=== PATIENT | female | born 1995 | race African-American/Black ===

== ENCOUNTER 2018-01-28 14:14 | Observation (INO) | payer OTHER ==
[2018-01-28] MEDS: IV RINGERS,LACTATED 1000ML 1,000 ML IV (15:19)
[2018-01-28] MEDS: ONDANSETRON PF 4 MG/2 ML VIAL. IV ×2 (15:27→22:15)
[2018-01-28] MEDS: IV DEXTROSE 5%-LACT RINGERS 1,000 ML IV ×2 (16:25→23:00)
[2018-01-28 18:00] LABS: BILIRUBIN,URINE NEGATIVE (NEG); CLARITY,URINE CLEAR; COLOR,URINE YELLOW; GLUCOSE,URINE NEGATIVE (NEG); NITRITE,URINE NEGATIVE (NEG); PROTEIN,URINE NEGATIVE (NEG-TRACE); UROBILINOGEN,URINE 0.2 mg/dL (0.2 mg/dL)
[2018-01-28 18:07] LABS: BACTERIA,URINE FEW /HPF (0-FEW); SQUAMOUS EPITHELIAL CELL,UR MANY /LPF
[2018-01-28 18:12] LABS: AMPHETAMINE/METHAMPHETAMINE NEG (NEG); BARBITURATES NEG (NEG); BENZODIAZEPINES NEG (NEG); CANNABINOIDS NEG (NEG); COCAINE NEG (NEG); ETHANOL, URINE NEG (NEG); METHADONE NEG (NEG); OPIATES NEG (NEG); PHENCYCLIDINE NEG (NEG)
[2018-01-28] MEDS ORDERED: ACETAMINOPHEN 500 MG TABLET PO (18:45)
[2018-01-28 18:58] LABS: BASO # 0.1 x10^3/uL (0.0-0.2); BASO % 1 % (0-3); EOS % 0 % (0-3); HEMATOCRIT 35.4 % (36.0-47.0); HEMOGLOBIN 12.5 g/dL (12.0-15.5); LYMPH # 1.2 x10^3/uL (1.0-4.8); LYMPH % 10 % (24-48); MEAN CORPUSCULAR HEMOGLOBIN 31 pg (25-35); MEAN CORPUSCULAR HGB CONC 35 g/dL (31-37); MEAN CORPUSCULAR VOLUME 89 fL (79-100); MONO # 0.5 x10^3/uL (0.0-1.1); MONO % 4 % (0-9); NEUT # 9.9 x10^3uL (1.8-7.7); NEUT % 85 % (31-73); PLATELET COUNT 190 x10^3/uL (140-400); RED BLOOD COUNT 3.98 x10^6/uL (3.50-5.40); RED CELL DISTRIBUTION WIDTH 12.8 % (11.5-14.5); WHITE BLOOD COUNT 11.6 x10^3/uL (4.0-11.0)
[2018-01-28 19:01] LABS: ADD MAN DIFF? YES
[2018-01-28 19:18] LABS: ALBUMIN 2.6 g/dL (3.4-5.0); ALBUMIN/GLOBULIN RATIO 0.7 (1.0-1.7); ALK PHOS 53 U/L (46-116); ALT (SGPT) 19 U/L (14-59); ANION GAP 13 (6-14); AST (SGOT) 16 U/L (15-37); BLOOD UREA NITROGEN 6 mg/dL (7-20); BUN/CREATININE RATIO 12 (6-20); CALCIUM 8.2 mg/dL (8.5-10.1); CARBON DIOXIDE 22 mmol/L (21-32); CHLORIDE 106 mmol/L (98-107); CREATININE 0.5 mg/dL (0.6-1.0); GFR 188.5; GLUCOSE 112 mg/dL (70-99); POTASSIUM 3.4 mmol/L (3.5-5.1); SODIUM 141 mmol/L (136-145); TOTAL BILIRUBIN 0.2 mg/dL (0.2-1.0); TOTAL PROTEIN 6.4 g/dL (6.4-8.2)
[2018-01-28] MEDS: CLINDAMYCIN 600MG PREMIX 50 ML IV (19:40)
[2018-01-28 20:05] LABS: % BANDS 1 % (0-9); % LYMPHS 8 % (24-48); % MONOS 5 % (0-10); % SEGS 86 % (35-66)
[2018-01-28 20:06] LABS: PLT ESTIMATE ADEQUATE (ADEQUATE)
[2018-01-29] MEDS: CLINDAMYCIN 600MG PREMIX 50 ML IV ×2 (03:54→12:05)
[2018-01-29] MEDS: ONDANSETRON PF 4 MG/2 ML VIAL. IV ×3 (09:06→16:38)
[2018-01-29] MEDS: IV RINGERS,LACTATED 1000ML 1,000 ML IV (09:07)
== END 2018-01-29 17:45 | disposition home or self-care (01) ==
LOC: 3 SO LND 14:14
DX: O26.892 Other specified pregnancy related conditions, second trimester (principal); R19.7 Diarrhea, unspecified; R11.0 Nausea; Z3A.19 19 weeks gestation of pregnancy
CPT/HCPCS: 36415; 80053; 80307; 81001; 85007; 85025; 87086; 96361; 96374; 96375; 96376; G0378; G0379; J2405; J3490; J7120

== ENCOUNTER 2019-08-06 22:46 | Emergency (ER) | payer SELFPAY ==
[~2019-08-06] VITALS: Ht 167.6 cm; Wt 83.5 kg
[~2019-08-06 22:46] MED LIST: CYCL10TA2 PO
[2019-08-06 23:28] VITALS: BP 146/102
--- NOTE | 2019-08-07 00:07 | PHYS DOC ---
Past Medical History Past Medical History: Other Additional Past Medical Histor: Lupus Past Surgical History: Alcohol Use: Occasionally Drug Use: None Adult General Chief Complaint Chief Complaint: DENTAL PROBLEM HPI HPI Patient is a 23 year old female who presents with dental pain has been ongoing for week. Patient states she has an appointment [facility]. States her pain is moderate at 8 out of 10 in severity. She has no medical history. Review of Systems Review of Systems Constitutional: Denies fever or chills [] Eyes: Denies change in visual acuity, redness, or eye pain [] HENT: Reports dental pain. Respiratory: Denies cough or shortness of breath [] Cardiovascular: No additional information not addressed in HPI [] GI: Denies abdominal pain, nausea, vomiting, bloody stools or diarrhea [] : Denies dysuria or hematuria [] Musculoskeletal: Denies back pain or joint pain [] Integument: Denies rash or skin lesions [] Neurologic: Denies headache, focal weakness or sensory changes [] Endocrine: Denies polyuria or polydipsia [] Complete systems were reviewed and found to be within normal limits, except as documented in this note. Allergies Allergies Allergies Coded Allergies Type Severity Reaction Last Updated Verified Penicillins Allergy Intermediate 11/09/15 Yes Physical Exam Physical Exam Constitutional: Well developed, well nourished, no acute distress, non-toxic appearance. [] HENT: Normocephalic, atraumatic, bilateral external ears normal, oropharynx moist, no oral exudates, nose normal. Tooth # 30 is cracked. Eyes: PERRLA, EOMI, conjunctiva normal, no discharge. [] Neck: Normal range of motion, no tenderness, supple, no stridor. [] Skin: Warm, dry, no erythema, no rash. [] Back: No tenderness, no CVA tenderness. [] Extremities: No tenderness, no cyanosis, no clubbing, ROM intact, no edema. [] Neurologic: Alert and oriented X 3, normal motor function, normal sensory function, no focal deficits noted. [] Psychologic: Affect normal, judgement normal, mood normal. [] Current Patient Data Vital Signs Vital Signs Date Time Temp Pulse Resp B/P (MAP) Pulse Ox O2 Delivery O2 Flow Rate FiO2 08/06/19 23:28 98.8 71 16 146/102 (117) 99 Room Air 98.8 EKG EKG [] Radiology/Procedures Radiology/Procedures [] Course & Med Decision Making Course & Med Decision Making Pertinent Labs and Imaging studies reviewed. (See chart for details) Patient has a cracked tooth. Has an appointment with a dentist tomorrow. Will have follow up with dentist. Alysha Disclaimer Dragon Disclaimer This electronic medical record was generated, in whole or in part, using a voice recognition dictation system. Departure Departure Impression: Primary Impression: Pain, dental Disposition: HOME, SELF-CARE Condition: STABLE Referrals: NO PCP (PCP) Patient Instructions: Dental Pain Additional Instructions: Thank you for visiting [facility]. We appreciate you trusting us with your care. If any additional problems come up don't hesitate to return to visit us. Please follow up with your primary care provider so they can plan additional care if needed and know about the problem that you had. If symptoms worsen come back to the Emergency Department. Any concerning symptoms that start such as chest pain, shortness of air, weakness or numbness on one side of the body, running high fevers or any other concerning symptoms return to the ER. Please follow up with dentist as scheduled tomorrow. JIN DILL APRN Aug 07, 2019 00:07
== END 2019-08-07 00:30 | disposition home or self-care (01) ==
LOC: ER 22:46
DX: K08.89 Other specified disorders of teeth and supporting structures (principal); Z88.0 Allergy status to penicillin
CPT/HCPCS: 99281

== ENCOUNTER 2019-08-12 01:58 | Emergency (ER) | payer SELFPAY ==
[~2019-08-12] VITALS: Ht 167.6 cm; Wt 83.9 kg
[2019-08-12 02:00] VITALS: BP 137/64
--- NOTE | 2019-08-12 02:46 | PHYS DOC ---
Past Medical History Past Medical History: Other Additional Past Medical Histor: Lupus Past Surgical History: Alcohol Use: Occasionally Drug Use: None Adult General Chief Complaint Chief Complaint: SHORTNESS OF BREATH HPI HPI Patient is a 23 year old -[place] female who presents with feeling of airway obstruction awaking her from sleep prior prior to ED arrival. Patient states she woke abruptly from sleep with feeling as though she could not breathe. Patient denies history of asthma, allergies, and angioedema. Patient states she was able to look at the back of her throat and thought it looked smaller than normal. She contacted EMS. No stridor or distress noted on EMS arrival. O2 saturations 100%. No recent illnesses, new medications or food exposures. No other acute symptoms or complaints. [] Review of Systems Review of Systems Review symptoms as per history of present illness. All other systems were reviewed and found to be within normal limits, except as documented in this note. Allergies Allergies Allergies Coded Allergies Type Severity Reaction Last Updated Verified Penicillins Allergy Intermediate 11/09/15 Yes Physical Exam Physical Exam Constitutional: Well developed, well nourished, no acute distress, non-toxic appearance. [] HENT: Normocephalic, atraumatic, bilateral external ears normal, no posterior oropharynx swelling, no oral exudates, nose normal. [] Eyes: PERRLA, EOMI, conjunctiva normal, no discharge. [] Neck: Normal range of motion, no tenderness, supple, no stridor. [] Cardiovascular:Heart rate regular rhythm, no murmur [] Lungs & Thorax: Bilateral breath sounds clear to auscultation [] Abdomen: Bowel sounds normal, soft, no tenderness. [] Skin: Warm, dry. [] Back: No tenderness. [] Extremities: No tenderness, no edema. [] Neurologic: Alert and oriented X 3, normal motor function, normal sensory function, no focal deficits noted. [] Psychologic: Affect normal, judgement normal, mood normal. [] Current Patient Data Vital Signs Vital Signs Date Time Temp Pulse Resp B/P (MAP) Pulse Ox O2 Delivery O2 Flow Rate FiO2 08/12/19 02:00 98.3 85 20 137/64 (88) 99 Room Air 98.3 EKG EKG [] Radiology/Procedures Radiology/Procedures [] Course & Med Decision Making Course & Med Decision Making Pertinent Labs and Imaging studies reviewed. (See chart for details) [Patient monitored in the ED. Normal physical exam and vital signs. Patient reassured. Recommendations are watchful waiting and PCP follow-up as needed. Return precautions reviewed.] Alysha Disclaimer Alysha Disclaimer This electronic medical record was generated, in whole or in part, using a voice recognition dictation system. Departure Departure Impression: Primary Impression: Encounter for medical screening examination Disposition: HOME/RESIDENCE PRIOR TO ADM Condition: STABLE Patient Instructions: Medical Screening Exam Additional Instructions: You were elevated emergency department for possible airway swelling. Your physical exam and vital signs are normal. The cause of your symptoms has not been determined. Please go home and rest and follow-up with your PCP as needed. Return to the ED if new or worsening symptoms DESIREE SINGH DO Aug 12, 2019 02:46
== END 2019-08-12 02:27 | disposition home or self-care (01) ==
LOC: ER 01:58
DX: J98.8 Other specified respiratory disorders (principal); Z98.890 Other specified postprocedural states; Z88.0 Allergy status to penicillin
CPT/HCPCS: 99283

== ENCOUNTER → 2020-06-02 | Outpatient (CLI) | payer OTHER ==
--- NOTE | 2020-06-02 16:42 | RAD ---
EXAM: Ultrasound OB Greater than 14 weeks INDICATION: Reason: EFW/ANATOMY SCAN, SIZE OF FETUS INCONSISTENT WITH DATES / Spl. Instructions: / History: TECHNIQUE: Real-time obstetrical ultrasound was performed with permanent freeze-frame documentation. COMPARISON: None. FINDINGS: POSITION: Breech HEART RATE: 1 47 bpm FELIBERTO: 10.9 cm PLACENTA: Anterior CERVICAL LENGTH: 4.3 cm MATERNAL UTERUS: Unremarkable. MATERNAL ADNEXA: Unremarkable. AGE/DATES: Gestational Age by LMP: 20 weeks 3 days Gestation Age by US: 20 weeks 3 days EDC by LMP: October 17, 2020 EDC by US: October 17, 2020 WEIGHT: 353 grams +/- 52 grams PERCENTILE WEIGHT: Not estimated BIOMETRIC PARAMETERS: BPD: 4.8 cm corresponding with 20 weeks 3 days HC: 17.9 cm corresponding with 20 weeks 3 days AC: 15.3 cm corresponding with 20 weeks 3 days FL: 3.3 cm corresponding with 20 weeks 3 days ANATOMY: CARDIAC: Normal four chamber heart. Normal right and left ventricular outflow tracts. UMBILICAL CORD: Normal 3 vessel cord. Normal cord insertion. BRAIN: Unremarkable. NOSE/LIPS: Unremarkable. SPINE: Unremarkable. EXTREMITIES: Unremarkable. STOMACH: Unremarkable. KIDNEYS: Unremarkable. BLADDER: Unremarkable. IMPRESSION: Normal OB ultrasound demonstrating a single viable fetus in breech position. Estimated gestational age of 20 weeks 3 days and EDC of October 17, 2020. Estimated weight is 353 +/- 52 g. Electronically signed by: Crescencio Bae MD (06/02/2020 4:39 PM) [id number]
== END | disposition home or self-care (01) ==
LOC: US 10:29
PROVIDERS: ATTEND Obstetrics & Gynecology
DX: Z32.01 Encounter for pregnancy test, result positive (principal); O34.219 Maternal care for unspecified type scar from previous cesarean delivery; O26.842 Uterine size-date discrepancy, second trimester; Z3A.20 20 weeks gestation of pregnancy
CPT/HCPCS: 76805

== ENCOUNTER → 2020-10-07 | Outpatient (CLI) | payer OTHER | LOC: LAB 16:01 | PROVIDERS: ATTEND Obstetrics & Gynecology | DX: Z20.822 Contact with and (suspected) exposure to COVID-19 (principal) | CPT/HCPCS: U0003 ==

== ENCOUNTER 2020-10-12 08:00 | Inpatient (IN) | payer OTHER ==
[~2020-10-12] VITALS: Ht 167.6 cm; Wt 108.0 kg
[2020-10-12] MEDS: IV RINGERS,LACTATED 1000ML 1,000 ML IV SCH ×2 (06:00→21:36)
[2020-10-12] MEDS ORDERED: MORPHINE PF 10 MG/10 ML AMPUL. ONE (10:40)
[2020-10-12] MEDS ORDERED: OXYTOCIN 10 UNIT/ML VIAL. ONE ×6 (10:40→13:18)
[2020-10-12] MEDS ORDERED: ONDANSETRON PF 4 MG/2 ML VIAL. ONE (10:40)
[2020-10-12] MEDS ORDERED: fentaNYL PF VIAL 100 MCG/2 ML VIAL ONE (10:41)
[2020-10-12] MEDS ORDERED: IBUPROFEN 400 MG TABLET. PO PRN (10:45)
[2020-10-12] MEDS ORDERED: LIDOCAINE 1% PF 30 ML VIAL. INJ PRN (10:45)
[2020-10-12] MEDS ORDERED: 0.9 % SODIUM CHLORIDE 10 ML DISP.SYRIN. IV PRN ×2 (10:45→13:30)
[2020-10-12] MEDS ORDERED: CITRIC ACID/SODIUM CITRATE 30 ML SOLUTION. PO ONE (10:45)
[2020-10-12] MEDS ORDERED: TERBUTALINE 1 MG/ML VIAL. SQ PRN (10:45)
[2020-10-12] MEDS ORDERED: OXYTOCIN 30 UNIT/500 ML PREMIX 500 ML IV PRN ×3 (10:45→13:30)
[2020-10-12] MEDS ORDERED: CLINDAMYCIN 900MG PREMIX 50 ML IV ONE (10:45)
[2020-10-12 11:14] LABS: BASO % 1 % (0-3); EOS # 0.1 x10^3/uL (0.0-0.7); EOS % 1 % (0-3); HEMATOCRIT 35.2 % (36.0-47.0); HEMOGLOBIN 11.8 g/dL (12.0-15.5); LYMPH # 1.9 x10^3/uL (1.0-4.8); LYMPH % 24 % (24-48); MEAN CORPUSCULAR HEMOGLOBIN 28 pg (25-35); MEAN CORPUSCULAR HGB CONC 34 g/dL (31-37); MEAN CORPUSCULAR VOLUME 83 fL (79-100); MONO # 0.6 x10^3/uL (0.0-1.1); MONO % 7 % (0-9); NEUT # 5.3 x10^3/uL (1.8-7.7); NEUT % 67 % (31-73); PLATELET COUNT 173 x10^3/uL (140-400); RED BLOOD COUNT 4.23 x10^6/uL (3.50-5.40); RED CELL DISTRIBUTION WIDTH 14.5 % (11.5-14.5); WHITE BLOOD COUNT 7.9 x10^3/uL (4.0-11.0)
[2020-10-12 11:19] VITALS: BP 129/88
--- NOTE | 2020-10-12 11:55 | PDOC1 ---
OB - History Hx of Present Care: Good Care Ultrasounds: Normal mid trimester US Obstetrical Complications: None Medical Complications: None Past Family/Social History * Past Medical, Surgical, Family and Obstetric Histories reviewed from chart. Rubella: Immune RPR/VDRL: Positive (Treated in 2nd trimester. Will need repeat testing.) GBS Status: Positive HBsAG: Negative OB - Chief Complaint & HPI Date of Admission: Date of Admission: Oct 12, 2020 at 10:27 Chief Complaint/History : 3 Para: 2 EGA: 39 Reason for admission: section Indication for : desires repeat Admission Nurse Assessment Rev: Yes OB - Admission Exam Physical Exam Vitals: VS - Last 72 Hours, by Label Date Time Temp Pulse Resp B/P (MAP) Pulse Ox O2 Delivery O2 Flow Rate FiO2 10/12/20 11:19 98.5 95 18 129/88 (102) 98 Room Air 98.5 HEENT: Normal Heart: Regular Rate Lungs: Clear Abdomen: Gravid, Non tender, Soft Extremities: Edema Reflexes: Normal Cervical Dilatation: None Effacement: 0% Station: Ballotable Membranes: Intact Heart Rate: Normal Accelerations: Accelerations Present Decelerations: No decelerations Contractions on Admission: >10 Minutes Apart Intensity: Mild Text A: 39 wks IUP Previous c/s x 2 H/o Syphilis this and treated P: Admit repeat c/s. DYANA RAMÍREZ Jr, MD Oct 12, 2020 11:55
[2020-10-12] MEDS ORDERED: PROPOFOL 10 MG/ML (20ML) VIAL. IV ONE (12:25)
[2020-10-12] MEDS ORDERED: diphenhydrAMINE ORAL ELIXIR 12.5 MG/5 ML ML PO PRN (13:30)
[2020-10-12] MEDS ORDERED: ONDANSETRON PF 4 MG/2 ML VIAL. IV PRN (13:30)
[2020-10-12] MEDS ORDERED: MAG HYDROX/ALUMINUM HYD/SIMETH 30 ML ORAL.SUSP PO PRN (13:30)
[2020-10-12] MEDS ORDERED: ZOLPIDEM 5 MG TABLET. PO PRN (13:30)
--- NOTE | 2020-10-12 13:30 | PDOC4 ---
OB Operative Note Date: Oct 12, 2020 PRE OP DIAGNOSIS: Previoujs C- section POST OP DIAGNOSIS: Previous C- section OPERATION PERFORMED: R [facility] Surgeon Dr. Mistry Box Coverer Hand Lens Gauger: Yo Anesthesia: Regional (Spinal) Blood Loss 800 ml Specimen placenta and OB Findings: Position (Vertex), Sex (Male), (8/9), Weight (7 Lb 9 oz), Vacuum Extraction (Yes) Complications none Additional Remarks see dictation DYANA MISTRY Jr, MD Oct 12, 2020 13:30
--- NOTE | 2020-10-12 13:54 | OP ---
DATE OF SURGERY: PREOPERATIVE DIAGNOSES: 1. A 39 weeks intrauterine . 2. Previous section x 2. 3. Group B Streptococcus positive. 4. History of syphilis early in . POSTOPERATIVE DIAGNOSES: 1. A 39 weeks intrauterine . 2. Previous section x 2. 3. Group B Streptococcus positive. 4. History of syphilis early in . 5. Uterine dehiscence. PROCEDURE: Repeat low transverse section. SURGEON: Dyana Mistry MD. BOILER INSTALLER: Yo. ANESTHESIA: Spinal. ESTIMATED BLOOD LOSS: 800 mL. COMPLICATIONS: None. FINDINGS: Viable male infant, Apgars 8 and 9, weight 7 pounds 9 ounces. Three-vessel cord placenta delivered manually intact. SUMMARY: A 25-year-old 3, para 2 at 39 weeks, presented for repeat . She was counseled on risks, benefits and expectations and voiced clear understanding to proceed. DESCRIPTION OF PROCEDURE: The patient was taken to surgery suite and placed in dorsal supine position. She was prepped with ChloraPrep and draped in sterile fashion. After adequate anesthesia, Pfannenstiel skin incision was made with scalpel down to and through the fascia. Fascia was extended laterally using curved Kirkpatrick scissors. The superior edge of fascia was dissected free of the abdominal rectus muscles using blunt dissection and Bovie cautery. The same process took place inferiorly. During the dissection of the abdominal rectus muscles with curved Kirkpatrick scissors, it was found that there was a uterine dehiscence which was about the size of about 6 cm and the amniotic sac was present. There were multiple adhesions to the anterior abdominal wall as well as the lower uterine segment. Hysterotomy incision was extended laterally and superiorly digitally. Amniotomy was performed with Allis clamp, which elicited clear amniotic fluid. With the aid of vacuum and fundal pressure, the head was delivered in a smooth atraumatic manner. Vacuum was then removed. With additional fundal pressure, the anterior shoulder was delivered followed by posterior shoulder and rest of male infant was delivered. Infant was suctioned with bulb syringe orally and nasally, umbilical cord was clamped twice and cut. Infant was handed to waiting nursing staff. Umbilical cord blood as well as arterial pH were obtained. Three-vessel cord placenta was delivered manually intact. There were multiple adhesions that were removed in order to remove the uterus from the abdomen. The uterus was then cleared of clot and debris with moist lap. Hysterotomy incision was repaired initially with #1 Vicryl suture in running locked fashion. Two layers of imbricated sutures of running #1 Vicryl suture was utilized for better hemostasis and repair of the hysterotomy incision. The uterus palpated firm. Fallopian tubes and ovaries appeared normal bilaterally. Additional adhesions of the omentum and the abdominal rectus muscles were removed using Bovie cautery and Metzenbaum scissors. The posterior cul-de-sac was cleared of clot with a moist lap. The uterus was then returned to the abdomen. Pericolic gutters were cleared of clot with the moist lap. Hysterotomy incision was reviewed and was hemostatic. Izabella was placed over the hysterotomy incision site. The peritoneum was reapproximated with #1 Vicryl suture in running fashion. The muscles were reapproximated using #1 Vicryl suture in an interrupted fashion. Fascia was reapproximated using Stratafix in running fashion. Skin was reapproximated using 4-0 Vicryl suture in subcuticular manner. The patient tolerated the procedure well and was taken to recovery room in stable condition. Sponge and needle count correct x 3. DYANA MISTRY MD DR: RALPH/mia JOB#: [id number] / [id number]
[2020-10-12] MEDS: KETOROLAC 30 MG/ML VIAL. IV PRN ×2 (15:10→21:36)
[2020-10-12 16:55] VITALS: BP 112/53
[2020-10-12] MEDS: FERROUS SULFATE 325 MG TABLET. PO SCH (17:00)
[2020-10-12 17:25] VITALS: BP 111/57
[2020-10-12 18:00] VITALS: BP 112/49
[2020-10-12 19:00] VITALS: BP 122/55
[2020-10-13 00:14] VITALS: BP 113/52
[2020-10-13 04:32] VITALS: BP 100/48
[2020-10-13] MEDS: IV RINGERS,LACTATED 1000ML 1,000 ML IV SCH (05:30)
[2020-10-13 07:00] LABS: BASO % 0 % (0-3); EOS # 0.1 x10^3/uL (0.0-0.7); EOS % 1 % (0-3); HEMATOCRIT 30.9 % (36.0-47.0); HEMOGLOBIN 10.2 g/dL (12.0-15.5); LYMPH # 1.5 x10^3/uL (1.0-4.8); LYMPH % 19 % (24-48); MEAN CORPUSCULAR HEMOGLOBIN 28 pg (25-35); MEAN CORPUSCULAR HGB CONC 33 g/dL (31-37); MEAN CORPUSCULAR VOLUME 84 fL (79-100); MONO # 0.6 x10^3/uL (0.0-1.1); MONO % 7 % (0-9); NEUT # 5.5 x10^3/uL (1.8-7.7); NEUT % 72 % (31-73); PLATELET COUNT 143 x10^3/uL (140-400); RED BLOOD COUNT 3.68 x10^6/uL (3.50-5.40); RED CELL DISTRIBUTION WIDTH 14.6 % (11.5-14.5); WHITE BLOOD COUNT 7.6 x10^3/uL (4.0-11.0)
[2020-10-13] MEDS: IBUPROFEN 400 MG TABLET. PO PRN ×2 (07:24→17:23)
[2020-10-13] MEDS: FERROUS SULFATE 325 MG TABLET. PO SCH (07:24)
[2020-10-13] MEDS: DOCUSATE SODIUM 100 MG CAPSULE. PO PRN (07:24)
[2020-10-13] MEDS: oxyCODONE/APAP 5/325 1 TAB TABLET PO PRN ×4 (07:25→22:32)
[2020-10-13 11:10] VITALS: BP 108/52
[2020-10-13 13:00] VITALS: BP 95/56
--- NOTE | 2020-10-13 13:10 | PDOC ---
OB Progress Note Date of Service 10/13/20 Time of Evaluation 1305 Notes Pt. feeling well. No complaints. Lab Laboratory Tests Test 10/12/20 11:00 10/13/20 05:27 White Blood Count 7.9 x10^3/uL (4.0-11.0) 7.6 x10^3/uL (4.0-11.0) Red Blood Count 4.23 x10^6/uL (3.50-5.40) 3.68 x10^6/uL (3.50-5.40) Hemoglobin 11.8 g/dL (12.0-15.5) 10.2 g/dL (12.0-15.5) Hematocrit 35.2 % (36.0-47.0) 30.9 % (36.0-47.0) Mean Corpuscular Volume 83 fL (79-100) 84 fL (79-100) Mean Corpuscular Hemoglobin 28 pg (25-35) 28 pg (25-35) Mean Corpuscular Hemoglobin Concent 34 g/dL (31-37) 33 g/dL (31-37) Red Cell Distribution Width 14.5 % (11.5-14.5) 14.6 % (11.5-14.5) Platelet Count 173 x10^3/uL (140-400) 143 x10^3/uL (140-400) Neutrophils (%) (Auto) 67 % (31-73) 72 % (31-73) Lymphocytes (%) (Auto) 24 % (24-48) 19 % (24-48) Monocytes (%) (Auto) 7 % (0-9) 7 % (0-9) Eosinophils (%) (Auto) 1 % (0-3) 1 % (0-3) Basophils (%) (Auto) 1 % (0-3) 0 % (0-3) Neutrophils # (Auto) 5.3 x10^3/uL (1.8-7.7) 5.5 x10^3/uL (1.8-7.7) Lymphocytes # (Auto) 1.9 x10^3/uL (1.0-4.8) 1.5 x10^3/uL (1.0-4.8) Monocytes # (Auto) 0.6 x10^3/uL (0.0-1.1) 0.6 x10^3/uL (0.0-1.1) Eosinophils # (Auto) 0.1 x10^3/uL (0.0-0.7) 0.1 x10^3/uL (0.0-0.7) Basophils # (Auto) 0.0 x10^3/uL (0.0-0.2) 0.0 x10^3/uL (0.0-0.2) Rapid Plasma Reagin Non reactive (Non Reactive) Treponema pallidum Antibody Reactive (Nonreactive) Laboratory Tests Test 10/13/20 05:27 White Blood Count 7.6 x10^3/uL (4.0-11.0) Red Blood Count 3.68 x10^6/uL (3.50-5.40) Hemoglobin 10.2 g/dL (12.0-15.5) Hematocrit 30.9 % (36.0-47.0) Mean Corpuscular Volume 84 fL (79-100) Mean Corpuscular Hemoglobin 28 pg (25-35) Mean Corpuscular Hemoglobin Concent 33 g/dL (31-37) Red Cell Distribution Width 14.6 % (11.5-14.5) Platelet Count 143 x10^3/uL (140-400) Neutrophils (%) (Auto) 72 % (31-73) Lymphocytes (%) (Auto) 19 % (24-48) Monocytes (%) (Auto) 7 % (0-9) Eosinophils (%) (Auto) 1 % (0-3) Basophils (%) (Auto) 0 % (0-3) Neutrophils # (Auto) 5.5 x10^3/uL (1.8-7.7) Lymphocytes # (Auto) 1.5 x10^3/uL (1.0-4.8) Monocytes # (Auto) 0.6 x10^3/uL (0.0-1.1) Eosinophils # (Auto) 0.1 x10^3/uL (0.0-0.7) Basophils # (Auto) 0.0 x10^3/uL (0.0-0.2) Medications Current Medications Clindamycin Phosphate 50 ml @ 100 mls/hr 1X ONCE IV ; Start 10/12/20 at 10:45; Stop 10/12/20 at 11:14; Status DC Cefazolin Sodium/ Dextrose 50 ml @ 100 mls/hr 1X ONCE IV ; Start 10/12/20 at 10:45; Stop 10/12/20 at 11:14; Status UNV Citric Acid/ Sodium Citrate (Bicitra) 30 ml 1X ONCE PO ; Start 10/12/20 at 10:45; Stop 10/12/20 at 10:47; Status DC Sodium Chloride (Normal Saline Flush) 3 ml QSHIFT PRN IV AFTER MEDS AND BLOOD DRAWS; Start 10/12/20 at 10:45; Stop 10/12/20 at 13:36; Status DC Ringer's Solution 1,000 ml @ 125 mls/hr Q8H IV Last administered on 10/13/20at 05:30; Start 10/12/20 at 10:45 Terbutaline Sulfate (Brethine) 0.25 mg 1X PRN PRN SQ SEE COMMENTS; Start 10/12/20 at 10:45; Stop 10/13/20 at 10:44; Status DC Lidocaine HCl (Xylocaine 1% Pf 30ml Vial) 30 ml 1X PRN PRN INJ SEE COMMENTS; Start 10/12/20 at 10:45; Stop 10/14/20 at 10:44 Oxytocin 500 ml @ 0 mls/hr CONT PRN IV SEE I/O RECORD; Start 10/12/20 at 10:45 Oxytocin 500 ml @ 0 mls/hr CONT PRN PRN IV Post delivery bleeding; Start 10/12/20 at 10:45 Ibuprofen (Motrin) 800 mg PRN Q6HRS PRN PO INFLAMMATION; Start 10/12/20 at 10:45; Stop 10/12/20 at 13:36; Status DC Ondansetron HCl (Zofran) 4 mg STK-MED ONCE .ROUTE ; Start 10/12/20 at 10:40; Stop 10/12/20 at 10:40; Status DC Oxytocin (Pitocin) 10 unit STK-MED ONCE .ROUTE ; Start 10/12/20 at 10:40; Stop 10/12/20 at 10:40; Status DC Oxytocin (Pitocin) 10 unit STK-MED ONCE .ROUTE ; Start 10/12/20 at 10:40; Stop 10/12/20 at 10:40; Status DC Oxytocin (Pitocin) 10 unit STK-MED ONCE .ROUTE ; Start 10/12/20 at 10:40; Stop 10/12/20 at 10:40; Status DC Morphine Sulfate (Morphine Preservative Free) 10 mg STK-MED ONCE .ROUTE ; Start 10/12/20 at 10:40; Stop 10/12/20 at 10:41; Status DC Fentanyl Citrate (Fentanyl 2ml Vial) 100 mcg STK-MED ONCE .ROUTE ; Start 10/12/20 at 10:41; Stop 10/12/20 at 10:41; Status DC Ephedrine Sulfate (Akovaz) 50 mg STK-MED ONCE .ROUTE ; Start 10/12/20 at 11:46; Stop 10/12/20 at 11:46; Status DC Propofol (Diprivan) 200 mg STK-MED ONCE IV ; Start 10/12/20 at 12:25; Stop 10/12/20 at 12:25; Status DC Oxytocin (Pitocin) 10 unit STK-MED ONCE .ROUTE ; Start 10/12/20 at 13:18; Stop 10/12/20 at 13:18; Status DC Oxytocin (Pitocin) 10 unit STK-MED ONCE .ROUTE ; Start 10/12/20 at 13:18; Stop 10/12/20 at 13:18; Status DC Oxytocin (Pitocin) 10 unit STK-MED ONCE .ROUTE ; Start 10/12/20 at 13:18; Stop 10/12/20 at 13:18; Status DC Sodium Chloride (Normal Saline Flush) 3 ml QSHIFT PRN IV AFTER MEDS AND BLOOD DRAWS; Start 10/12/20 at 13:30 Oxytocin 500 ml @ 125 mls/hr CONT PRN IV EXCESSIVE POST- BLEEDING; Start 10/12/20 at 13:30; Stop 10/12/20 at 21:29; Status DC Ibuprofen (Motrin) 800 mg PRN Q8HRS PRN PO INFLAMMATION Last administered on 10/13/20at 07:24; Start 10/12/20 at 13:30 Ondansetron HCl (Zofran) 4 mg PRN Q6HRS PRN IV NAUSEA/VOMITING; Start 10/12/20 at 13:30 Docusate Sodium (Colace) 100 mg PRN BID PRN PO CONSTIPATION Last administered on 10/13/20at 07:24; Start 10/12/20 at 13:30 Al Hydroxide/Mg Hydroxide (Mylanta Plus Xs) 30 ml PRN Q4HRS PRN PO HEARTBURN / GAS; Start 10/12/20 at 13:30 Simethicone (Gas-X) 80 mg PRN AFTMEALHC PRN PO GAS / BLOATING; Start 10/12/20 at 13:30 Diphenhydramine HCl (Benadryl Oral Elixir) 12.5 mg PRN Q6HRS PRN PO ITCHING; Start 10/12/20 at 13:30 Ferrous Sulfate (Feosol) 325 mg BIDWMEALS PO Last administered on 10/13/20at 07:24; Start 10/12/20 at 17:00 Zolpidem Tartrate (Ambien) 5 mg PRN QHS PRN PO INSOMNIA, MAY REPEAT X1; Start 10/12/20 at 13:30 Oxycodone/ Acetaminophen (Percocet 5/325) 2 tab PRN Q4HRS PRN PO MODERATE PAIN, SEVERE PAIN Last administered on 10/13/20at 07:25; Start 10/12/20 at 13:30 Ketorolac Tromethamine (Toradol 30mg Vial) 30 mg PRN Q6HRS PRN IV INFLAMMATION/PAIN Last administered on 10/12/20at 21:36; Start 10/12/20 at 13:30; Stop 10/17/20 at 13:29 Multivitamins (Thera M Plus) 1 tab DAILY PO ; Start 10/13/20 at 09:00 Active Scripts Active Cyclobenzaprine Hcl 10 Mg Tablet 10 Mg PO TID Exam Abd: soft, non tender, fundus firm Incision site: clean, dry and intact Assessment POD#1 s/p repeat c/s Plan of Care: Continue current Tx, Mgmt DYANA RAMÍREZ Jr, MD Oct 13, 2020 13:10
[2020-10-13] MEDS: SIMETHICONE 80 MG TAB.CHEW PO PRN (13:19)
[2020-10-13 17:30] VITALS: BP 105/55
[2020-10-13 21:28] VITALS: BP 89/50
[2020-10-14] MEDS: IBUPROFEN 400 MG TABLET. PO PRN ×3 (00:49→17:40)
[2020-10-14] MEDS: oxyCODONE/APAP 5/325 1 TAB TABLET PO PRN ×3 (05:52→17:42)
[2020-10-14 06:03] VITALS: BP 106/59
[2020-10-14 08:15] VITALS: BP 99/66
[2020-10-14] MEDS: FERROUS SULFATE 325 MG TABLET. PO SCH ×2 (08:59→17:39)
[2020-10-14] MEDS: DOCUSATE SODIUM 100 MG CAPSULE. PO PRN ×2 (08:59→17:39)
[2020-10-14] MEDS: MULTIVITAMIN with MINERAL TABLET. PO SCH (08:59)
[2020-10-14 12:05] VITALS: BP 99/52
[2020-10-14] MEDS: SIMETHICONE 80 MG TAB.CHEW PO PRN (12:58)
--- NOTE | 2020-10-14 13:51 | PDOC ---
OB Progress Note Date of Service 10/14/20 Time of Evaluation 1350 Notes PT. feeling well. Pain controlled. No complaints. Lab Laboratory Tests Test 10/13/20 05:27 White Blood Count 7.6 x10^3/uL (4.0-11.0) Red Blood Count 3.68 x10^6/uL (3.50-5.40) Hemoglobin 10.2 g/dL (12.0-15.5) Hematocrit 30.9 % (36.0-47.0) Mean Corpuscular Volume 84 fL (79-100) Mean Corpuscular Hemoglobin 28 pg (25-35) Mean Corpuscular Hemoglobin Concent 33 g/dL (31-37) Red Cell Distribution Width 14.6 % (11.5-14.5) Platelet Count 143 x10^3/uL (140-400) Neutrophils (%) (Auto) 72 % (31-73) Lymphocytes (%) (Auto) 19 % (24-48) Monocytes (%) (Auto) 7 % (0-9) Eosinophils (%) (Auto) 1 % (0-3) Basophils (%) (Auto) 0 % (0-3) Neutrophils # (Auto) 5.5 x10^3/uL (1.8-7.7) Lymphocytes # (Auto) 1.5 x10^3/uL (1.0-4.8) Monocytes # (Auto) 0.6 x10^3/uL (0.0-1.1) Eosinophils # (Auto) 0.1 x10^3/uL (0.0-0.7) Basophils # (Auto) 0.0 x10^3/uL (0.0-0.2) Medications Current Medications Clindamycin Phosphate 50 ml @ 100 mls/hr 1X ONCE IV ; Start 10/12/20 at 10:45; Stop 10/12/20 at 11:14; Status DC Cefazolin Sodium/ Dextrose 50 ml @ 100 mls/hr 1X ONCE IV ; Start 10/12/20 at 10:45; Stop 10/12/20 at 11:14; Status UNV Citric Acid/ Sodium Citrate (Bicitra) 30 ml 1X ONCE PO ; Start 10/12/20 at 10:45; Stop 10/12/20 at 10:47; Status DC Sodium Chloride (Normal Saline Flush) 3 ml QSHIFT PRN IV AFTER MEDS AND BLOOD DRAWS; Start 10/12/20 at 10:45; Stop 10/12/20 at 13:36; Status DC Ringer's Solution 1,000 ml @ 125 mls/hr Q8H IV Last administered on 10/13/20at 05:30; Start 10/12/20 at 10:45; Stop 10/13/20 at 23:47; Status DC Terbutaline Sulfate (Brethine) 0.25 mg 1X PRN PRN SQ SEE COMMENTS; Start 10/12/20 at 10:45; Stop 10/13/20 at 10:44; Status DC Lidocaine HCl (Xylocaine 1% Pf 30ml Vial) 30 ml 1X PRN PRN INJ SEE COMMENTS; Start 10/12/20 at 10:45; Stop 10/13/20 at 23:47; Status DC Oxytocin 500 ml @ 0 mls/hr CONT PRN IV SEE I/O RECORD; Start 10/12/20 at 10:45; Stop 10/13/20 at 23:47; Status DC Oxytocin 500 ml @ 0 mls/hr CONT PRN PRN IV Post delivery bleeding; Start 10/12/20 at 10:45; Stop 10/13/20 at 23:47; Status DC Ibuprofen (Motrin) 800 mg PRN Q6HRS PRN PO INFLAMMATION; Start 10/12/20 at 10:45; Stop 10/12/20 at 13:36; Status DC Ondansetron HCl (Zofran) 4 mg STK-MED ONCE .ROUTE ; Start 10/12/20 at 10:40; Stop 10/12/20 at 10:40; Status DC Oxytocin (Pitocin) 10 unit STK-MED ONCE .ROUTE ; Start 10/12/20 at 10:40; Stop 10/12/20 at 10:40; Status DC Oxytocin (Pitocin) 10 unit STK-MED ONCE .ROUTE ; Start 10/12/20 at 10:40; Stop 10/12/20 at 10:40; Status DC Oxytocin (Pitocin) 10 unit STK-MED ONCE .ROUTE ; Start 10/12/20 at 10:40; Stop 10/12/20 at 10:40; Status DC Morphine Sulfate (Morphine Preservative Free) 10 mg STK-MED ONCE .ROUTE ; Start 10/12/20 at 10:40; Stop 10/12/20 at 10:41; Status DC Fentanyl Citrate (Fentanyl 2ml Vial) 100 mcg STK-MED ONCE .ROUTE ; Start 10/12 at 10:41; Stop 10/12/20 at 10:41; Status DC Ephedrine Sulfate (Akovaz) 50 mg STK-MED ONCE .ROUTE ; Start 10/12/20 at 11:46; Stop 10/12/20 at 11:46; Status DC Propofol (Diprivan) 200 mg STK-MED ONCE IV ; Start 10/12/20 at 12:25; Stop 10/12/20 at 12:25; Status DC Oxytocin (Pitocin) 10 unit STK-MED ONCE .ROUTE ; Start 10/12/20 at 13:18; Stop 10/12/20 at 13:18; Status DC Oxytocin (Pitocin) 10 unit STK-MED ONCE .ROUTE ; Start 10/12/20 at 13:18; Stop 10/12/20 at 13:18; Status DC Oxytocin (Pitocin) 10 unit STK-MED ONCE .ROUTE ; Start 10/12/20 at 13:18; Stop 10/12/20 at 13:18; Status DC Sodium Chloride (Normal Saline Flush) 3 ml QSHIFT PRN IV AFTER MEDS AND BLOOD DRAWS; Start 10/12/20 at 13:30; Stop 10/13/20 at 23:47; Status DC Oxytocin 500 ml @ 125 mls/hr CONT PRN IV EXCESSIVE POST- BLEEDING; Start 10/12/20 at 13:30; Stop 10/12/20 at 21:29; Status DC Ibuprofen (Motrin) 800 mg PRN Q8HRS PRN PO INFLAMMATION Last administered on 10/14/20at 08:59; Start 10/12/20 at 13:30 Ondansetron HCl (Zofran) 4 mg PRN Q6HRS PRN IV NAUSEA/VOMITING; Start 10/12/20 at 13:30; Stop 10/13/20 at 23:47; Status DC Docusate Sodium (Colace) 100 mg PRN BID PRN PO CONSTIPATION Last administered on 10/14/20at 08:59; Start 10/12/20 at 13:30 Al Hydroxide/Mg Hydroxide (Mylanta Plus Xs) 30 ml PRN Q4HRS PRN PO HEARTBURN / GAS; Start 10/12/20 at 13:30 Simethicone (Gas-X) 80 mg PRN AFTMEALHC PRN PO GAS / BLOATING Last administered on 10/14/20at 12:58; Start 10/12/20 at 13:30 Diphenhydramine HCl (Benadryl Oral Elixir) 12.5 mg PRN Q6HRS PRN PO ITCHING; Start 10/12/20 at 13:30 Ferrous Sulfate (Feosol) 325 mg BIDWMEALS PO Last administered on 10/14/20at 08:59; Start 10/12/20 at 17:00 Zolpidem Tartrate (Ambien) 5 mg PRN QHS PRN PO INSOMNIA, MAY REPEAT X1; Start 10/12/20 at 13:30 Oxycodone/ Acetaminophen (Percocet 5/325) 2 tab PRN Q4HRS PRN PO MODERATE PAIN, SEVERE PAIN Last administered on 10/14/20at 12:57; Start 10/12/20 at 13:30 Ketorolac Tromethamine (Toradol 30mg Vial) 30 mg PRN Q6HRS PRN IV INFLAMMATION/PAIN Last administered on 10/12/20at 21:36; Start 10/12/20 at 13:30; Stop 10/13/20 at 23:47; Status DC Multivitamins (Thera M Plus) 1 tab DAILY PO Last administered on 10/14/20at 08:59; Start 10/13/20 at 09:00 Active Scripts Active Cyclobenzaprine Hcl 10 Mg Tablet 10 Mg PO TID Exam Abd: soft, non tender, fundus firm Incision site: clean, dry and intact Assessment POD#2 s/p repeat c/s Plan of Care: Continue current Tx, Mgmt DYANA RAMÍREZ Jr, MD Oct 14, 2020 13:51
[2020-10-14 16:45] VITALS: BP 108/45
[2020-10-14 21:13] VITALS: BP 120/76
[2020-10-15] MEDS: oxyCODONE/APAP 5/325 1 TAB TABLET PO PRN ×2 (03:59→12:24)
[2020-10-15 04:06] VITALS: BP 107/72
[2020-10-15] MEDS: SIMETHICONE 80 MG TAB.CHEW PO PRN (08:50)
[2020-10-15] MEDS: DOCUSATE SODIUM 100 MG CAPSULE. PO PRN (08:50)
[2020-10-15] MEDS: IBUPROFEN 400 MG TABLET. PO PRN (08:50)
[2020-10-15] MEDS: MULTIVITAMIN with MINERAL TABLET. PO SCH (08:50)
[2020-10-15 10:15] VITALS: BP 118/78
--- NOTE | 2020-10-15 15:43 | PDOC3 ---
OB DISCHARGE SUMMARY DATE OF ADMISSION: 10/12/20 DATE OF DISCHARGE: 10/15/20 REASON FOR ADMISSION: section INTRAPARTUM PROCEDURES: : Low Cerv Trans DISCHARGE DIAGNOSIS: Term Delivered DISCHARGE INFORMATION: Activity (ad marlon), Diet (regular), Instructions (pelvic rest x 6 wks, no driving x 2 wks, no lifting > 20 lbs. ) HOSPITAL COURSE Term gestation delivered repeat section without complications. DYANA RAMÍREZ Jr, MD Oct 15, 2020 15:43
[2020-10-15] MEDS ORDERED: IBUP-1027 PO (15:45)
[2020-10-15] MEDS ORDERED: OXYC1TAB15 PO (15:45)
[2020-10-15] MEDS ORDERED: DOCU-153 PO (15:45)
--- NOTE | 2020-10-15 15:45 | DISCH ---
DISCHARGE INSTRUCTIONS Condition on Discharge Condition on Discharge: Stable Activity After Discharge Activity Instructions for Disc: Activity as tolerated Lifting Instructions after Dis: No heavy lifting Driving Instructions after Dis: No driving for 2 weeks Diet after Discharge Diet after Discharge: Regular Contacting the DRJacob after DC Call your doctor for: Concerns you may have Follow-Up Follow up with: Dr. Mistry in 2 weeks DYANA MISTRY Jr, MD Oct 15, 2020 15:45
--- NOTE | 2020-10-15 15:55 | NUR ---
Discharge instructions given to pt. Pt verbalized understanding. Pt discharged home with significant other and .
[2020-10-15 16:20] VITALS: BP 114/66
--- NOTE | 2020-10-18 18:10 | PATHOLOGY ---
[facility] Accession Number: [id number] . 01 Material submitted: . placenta - PLACENTA AND CORD . 01 Clinical history: . ;UTERINE DEHISCENCE AND ABRUPTION SYPHILIS REACTIVE . 02 Diagnosis: 477 gram term placenta of an estimated 39 weeks 2 days gestation with attached membranes and umbilical cord and separate segment of umbilical cord: - Focal recent retroplacental and retromembranous hemorrhage. - Focal recent subamniotic hemorrhage of chorionic plate. (JPM:dominguez; 10/18/2020) S 10/18/2020 1728 Local . 02 Comment: There is no evidence of an acute chorioamnionitis. There is no evidence of a chronic villitis. More specifically, there is no evidence of syphilitic placentitis. There are no infarcts. (JPM:dominguez; 10/18/2020) . 02 Electronically signed: . Reji Jackson MD, Pathologist NPI- [id number] . 01 Gross description: . Received in formalin labeled "Esteban Plunkett, placenta " is a marques placenta with attached membranes and umbilical cord. The placental disc measures 17.2 x 15.9 x 4.4 cm. The membranes are transparent and thin with the site of membrane rupture at edge of the placental disc. The membranes have marginal insertion. The unattached unoriented umbilical cord measures 19.9 cm in length, 1.2 cm in diameter. The attached umbilical cord measures 13.2 cm in length, 1.4 cm in diameter and contains three vessels and inserts eccentrically, 3.6 cm from the closest placental margin. There are no true knots in the umbilical cord. The trimmed placental weight is 477 grams. The surface is blue-rowan with blood clot adjacent to the umbilical cord beneath the membranes measuring 5.9 x 3.6 x 1.4 cm and with minimal subchorionic fibrin. Amnion nodosum is not present. Cysts are not present. The maternal surface has intact cotyledons and no basal hemorrhage. Sectioning through the placental disc reveals spongy, red-purple cut surface without any chronic or acute infarcts. Fur Cutter sections are submitted as follows: . A1 proximal and distal umbilical cord A2 membranes, rolled A3 credit and collections representative peripheral placenta A4 credit and collections representative central placenta A5 additional maternal surface A6 surface adjacent to umbilical cord insertion site ([facility]; 10/17/2020) GZA/GZA 10/17/2020 0920 Local . 02 Pathologist provided ICD-10: O43.893, Z37.0, Z3A.39 . 02 CPT . 118000 Specimen Comment: A courtesy copy of this report has been sent to [phone] Specimen Comment: Report sent to Specimen Comment: A duplicate report has been generated due to demographic updates. Performed at: 01 [facility] [address], [place] [address] MD Syed Ag MD Phone: [phone] Performed at: 02 [facility] [address], [place] [id number] MD Reji Jackson MD Phone: [phone]
== END 2020-10-15 16:35 | disposition home or self-care (01) | DRG 788 ==
LOC: 3 SO LND 10:27 → 3 NORTH 16:45
PROVIDERS: ADMIT Obstetrics & Gynecology; ATTEND Obstetrics & Gynecology
PROC: 10D00Z1 Extraction of Products of Conception, Low, Open Approach (ICD-10-PCS; principal; 2020-10-12)
PROC: 0UN90ZZ Release Uterus, Open Approach (ICD-10-PCS; 2020-10-12)
PROC: 0DNU0ZZ Release Omentum, Open Approach (ICD-10-PCS; 2020-10-12)
DX: O34.211 Maternal care for low transverse scar from previous cesarean delivery (principal); O99.824 Streptococcus B carrier state complicating childbirth; O90.0 Disruption of cesarean delivery wound; O99.892 Other specified diseases and conditions complicating childbirth; O99.62 Diseases of the digestive system complicating childbirth; K66.0 Peritoneal adhesions (postprocedural) (postinfection); Z3A.39 39 weeks gestation of pregnancy; Z37.0 Single live birth
CPT/HCPCS: 36415; 85025; 86592; 86850; 86900; 86901; 86920; 88307; J1885; J2274; J2405; J2590; J2704; J3010; J7120; G0378

== ENCOUNTER → 2021-01-10 | Outpatient (CLI) | payer OTHER ==
[~2021-01-10] MED LIST changes: +DOCU-153 PO; +IBUP-1027 PO; +OXYC1TAB15 PO
== END ==
LOC: LAB 10:13
PROVIDERS: ATTEND Obstetrics & Gynecology
DX: Z01.812 Encounter for preprocedural laboratory examination (principal); Z20.822 Contact with and (suspected) exposure to COVID-19
CPT/HCPCS: U0003; U0005

== ENCOUNTER 2021-01-13 06:43 | Day surgery (SDC) | payer OTHER ==
[~2021-01-13 06:43] MED LIST changes: +HYDROmorphone 2 MG/ML VIAL IVP PRN; +IV RINGERS,LACTATED 1000ML 1,000 ML IV SCH; +MORPHINE SULFATE 2 MG/ML VIAL. IVP PRN; +PROCHLORPERAZINE 10 MG/2 ML VIAL. IVP PRN; +fentaNYL PF VIAL 100 MCG/2 ML VIAL IVP PRN
[2021-01-13] MEDS ORDERED: BUPIVACAINE-EPI 0.25% 30 ML VIAL KIT. ONE (06:59)
[2021-01-13] MEDS ORDERED: DEXAMETHASONE SOD PHOS 20 MG/5 ML VIAL. ONE (08:00)
[2021-01-13] MEDS ORDERED: ROCURONIUM 50 MG/5 ML VIAL. ONE (08:00)
[2021-01-13] MEDS ORDERED: LIDOCAINE 2% 100 MG/5 ML SYRINGE. ONE (08:00)
[2021-01-13] MEDS ORDERED: NEOSTIGMINE METHYLSULFATE 5 MG/5 ML SYRINGE. ONE (08:00)
[2021-01-13] MEDS ORDERED: ePHEDrine PF IN SALINE 50 MG/10 ML SYRINGE. IV ONE (08:00)
[2021-01-13] MEDS ORDERED: PROPOFOL 10 MG/ML (20ML) VIAL. IV ONE (08:00)
[2021-01-13] MEDS ORDERED: GLYCOPYRROLATE 1 MG/5 ML SYRINGE. ONE (08:00)
[2021-01-13] MEDS ORDERED: MIDAZOLAM HCL/PF 2 MG/2 ML VIAL. ONE (08:14)
[2021-01-13] MEDS ORDERED: ONDANSETRON PF 4 MG/2 ML VIAL. ONE ×2 (08:14→08:15)
[2021-01-13] MEDS ORDERED: KETOROLAC 30 MG/ML VIAL. ONE (08:15)
[2021-01-13] MEDS ORDERED: fentaNYL PF VIAL 250 MCG/5 ML VIAL ONE (08:15)
--- NOTE | 2021-01-13 09:09 | PDOC ---
BRIEF OPERATIVE NOTE Date: Jan 13, 2021 Pre-Op Diagnosis Sterilization Post-Op Diagnosis SAme Procedure Performed [facility] BTL Surgeon Dr. Mistry Anesthesia Type: General Blood Loss 10 ml Specimens Obtained none Findings nml size uterus with adhesions to abd wall, nml fallopian tubes and ovaries mervin. Complications none Operative Note see dictation DYANA MISTRY Jr, MD Jan 13, 2021 09:09
--- NOTE | 2021-01-13 09:10 | DISCH ---
DISCHARGE INSTRUCTIONS Condition on Discharge Condition on Discharge: Stable Activity After Discharge Activity Instructions for Disc: Avoid exertion Bathing Instructions: No Tub Bath until see Lifting Instructions after Dis: No heavy lifting, No pulling or pushing, Do not lift >10 pounds Driving Instructions after Dis: Do not drive today Weight Bearing Status after Di: As tolerated Diet after Discharge Diet after Discharge: Regular Contacting the DRJacob after DC Call your doctor for: Concerns you may have Follow-Up Follow up with: Dr. Connelly in 1 week DYANA CONNELLY Jr, MD Jan 13, 2021 09:10
[2021-01-13] MEDS ORDERED: fentaNYL PF VIAL 100 MCG/2 ML VIAL ONE (09:29)
[2021-01-13] MEDS: fentaNYL PF VIAL 100 MCG/2 ML VIAL IVP PRN ×2 (09:31→09:48)
[2021-01-13] MEDS ORDERED: OXYC1TAB15 PO (09:51)
[2021-01-13] MEDS ORDERED: oxyCODONE/APAP 5/325 1 TAB TABLET PO ONE ×2 (10:00)
[2021-01-13 10:15] VITALS: BP 121/59
--- NOTE | 2021-01-13 13:19 | OP ---
DATE OF SURGERY: 01/13/2021 PREOPERATIVE DIAGNOSIS: Sterilization. POSTOPERATIVE DIAGNOSIS: Sterilization. PROCEDURE: Laparoscopic BTL with Filshie clips. SURGEON: Dr. Mistry. ANESTHESIA: GETA. ESTIMATED BLOOD LOSS: 10 mL. COMPLICATIONS: None. FINDINGS: Normal size uterus with adhesions to the abdominal wall. Normal fallopian tubes and ovaries bilaterally. SUMMARY: A 25-year-old female who desires permanent sterilization and was counseled on the risks, benefits and expectations as well as failure rate and desired to proceed. DESCRIPTION OF PROCEDURE: The patient was taken to surgery suite and placed in dorsal lithotomy position where she was prepped with Betadine solution for vaginal prep and ChloraPrep for abdominal prep. After adequate anesthesia, a bivalve speculum was placed vaginally. The anterior lip of the cervix was grasped with a single tooth tenaculum. Uterine acorn manipulator was then placed. The bivalve speculum was removed. Attention was now placed on the abdomen. A small transverse skin incision was made just below the umbilicus with a scalpel. The Veress needle was then placed through the infraumbilical incision site. The abdomen was allowed to insufflate up to 1.5 liters of CO2 gas. The Veress needle was then removed. A 5 mm trocar was placed. The scope was positioned. The uterus was of normal size with adhesions to the abdominal wall. Fallopian tubes and ovaries appeared normal bilaterally. A second incision was made in the left lower quadrant which an 8 mm trocar was placed. The Filshie clip applicator was then used to place a Filshie clip across the left fallopian tube in the isthmus region, totally occluding the fallopian tube. Same process took place at the right adnexa. The trocar was then removed under direct visualization. The abdomen was allowed to deflate as much as possible along with mechanical manipulation. The two skin incisions were reapproximated using 4-0 Vicryl suture in subcuticular manner. 0.25% Marcaine with epinephrine was injected in each incision site. Uterine acorn manipulator and single tooth tenaculum were then removed. The patient tolerated the procedure well and was taken to recovery room in stable condition. Sponge and needle count correct x 3. RALPH/NEGRA/ANUP DR: RALPH/mia TID: [id number]
== END 2021-01-13 10:48 | disposition home or self-care (01) ==
LOC: SURG 06:43
PROVIDERS: ATTEND Obstetrics & Gynecology
DX: Z30.2 Encounter for sterilization (principal); E66.9 Obesity, unspecified; K21.9 Gastro-esophageal reflux disease without esophagitis; F41.9 Anxiety disorder, unspecified; F17.210 Nicotine dependence, cigarettes, uncomplicated; Z79.899 Other long term (current) drug therapy; Z98.890 Other specified postprocedural states; Z88.0 Allergy status to penicillin; Z72.89 Other problems related to lifestyle
CPT/HCPCS: 58671; 81025; A4930; A6219; J0780; J1100; J1885; J2250; J2405; J2704; J2710; J3010; J3490

== ENCOUNTER 2021-04-29 22:50 | Emergency (ER) | payer OTHER ==
[~2021-04-29] VITALS: Ht 167.6 cm; Wt 95.6 kg
[~2021-04-29 22:50] MED LIST changes: +DOCU-148 PO; -DOCU-153 PO; -HYDROmorphone 2 MG/ML VIAL IVP PRN; -IV RINGERS,LACTATED 1000ML 1,000 ML IV SCH; -MORPHINE SULFATE 2 MG/ML VIAL. IVP PRN; -PROCHLORPERAZINE 10 MG/2 ML VIAL. IVP PRN; -fentaNYL PF VIAL 100 MCG/2 ML VIAL IVP PRN
[2021-04-30 00:31] LABS: BILIRUBIN,URINE NEGATIVE (NEG); CLARITY,URINE CLEAR; COLOR,URINE YELLOW; NITRITE,URINE NEGATIVE (NEG); PROTEIN,URINE NEGATIVE (NEG-TRACE); UROBILINOGEN,URINE 0.2 mg/dL (0.2 mg/dL)
[2021-04-30 01:12] LABS: BACTERIA,URINE MODERATE /HPF (0-FEW); RBC,URINE OCC /HPF (0-2)
[2021-04-30 01:49] VITALS: BP 126/77
[2021-04-30] MEDS ORDERED: NITR100C62 PO (02:42)
--- NOTE | 2021-04-30 02:45 | PHYS DOC ---
Past Medical History Past Medical History: Other Additional Past Medical Histor: Lupus Past Surgical History: Smoking Status: Current Every Day Smoker Alcohol Use: Rarely Drug Use: None General Adult EDM: Chief Complaint: FLANK PAIN HPI: HPI: 25-year-old female with no significant past medical history (smokes cigars) presents to the ED with complaints of burning with urination and mild bloody urine for the past 2 days with sharp, nonradiating intermittent right flank pain. Patient states she has had a urinary tract infection before and this feels similar. Last menstrual period was April 19. States she took 1 dose/2 tablets of Azo and quickly after developed pruritic rash on her right arm. Urticaria with penicillin. Does not take any routine medications. No associated nausea or vomiting or flulike symptoms. Review of Systems: Review of Systems: Constitutional: Denies fever or chills. [] Eyes: Denies change in visual acuity. [] HENT: Denies nasal congestion or sore throat. [] Respiratory: Denies cough or shortness of breath. [] Cardiovascular: Denies chest pain or edema. [] GI: Denies abdominal pain, nausea, vomiting, or diarrhea. [] : Denies vaginal bleeding or saddle anesthesia Musculoskeletal: Denies joint pain or swelling Integument: Denies rash or diaphoresis Neurologic: Denies headache, focal weakness or sensory changes. [] Psychiatric: Denies depression or anxiety. [] Heart Score: C/O Chest Pain: No Risk Factors: Risk Factors: DM, Current or recent (<one month) smoker, HTN, HLP, family history of CAD, obesity. Risk Scores: Score 0 - 3: 2.5% MACE over next 6 weeks - Discharge Home Score 4 - 6: 20.3% MACE over next 6 weeks - Admit for Clinical Observation Score 7 - 10: 72.7% MACE over next 6 weeks - Early Invasive Strategies Allergies: Allergies: Allergies Coded Allergies Type Severity Reaction Last Updated Verified Penicillins Allergy Intermediate Swelling 01/13/21 Yes Physical Exam: PE: Constitutional: Well developed, well nourished, no acute distress, non-toxic appearance. HENT: Normocephalic, atraumatic, oropharynx patent Eyes: EOMI, conjunctiva normal, no discharge. Neck: Normal range of motion, supple, Cardiovascular: S1/2 present, regular rhythm Lungs & Thorax: Speaking in full sentences, bilateral equal chest rise, no tachypnea or increased work of breathing Skin: Warm, dry, no urticaria but with small raised lesions over right forearm - could indicate resolving urticaria Back: No tenderness, right CVA tenderness. [] Extremities: No tenderness, no cyanosis, no lower extremity edema Neurologic: Alert and oriented X 3, normal motor function, normal sensory function, no focal deficits noted. [] Psychologic: Affect normal, judgement normal, mood normal. [] Current Patient Data: Labs: Laboratory Tests Test 04/29/21 22:56 04/29/21 22:59 Urine Collection Type Unknown Urine Color Yellow Urine Clarity Clear Urine pH 7.0 (<5.0-8.0) Urine Specific [place] 1.010 (1.000-1.030) Urine Protein Negative mg/dL (NEG-TRACE) Urine Glucose (UA) Negative mg/dL (NEG) Urine Ketones (Stick) Negative mg/dL (NEG) Urine Blood Moderate (NEG) Urine Nitrite Negative (NEG) Urine Bilirubin Negative (NEG) Urine Urobilinogen Dipstick 0.2 mg/dL (0.2 mg/dL) Urine Leukocyte Esterase Moderate (NEG) Urine RBC Occ /HPF (0-2) Urine WBC 11-20 /HPF (0-4) Urine Squamous Epithelial Cells Mod /LPF Urine Bacteria Moderate /HPF (0-FEW) Urine Mucus Slight /LPF POC Urine HCG, Qualitative Hcg negative (Negative) Vital Signs: Vital Signs Date Time Temp Pulse Resp B/P (MAP) Pulse Ox O2 Delivery O2 Flow Rate FiO2 04/29/21 23:25 98.4 80 16 121/75 (79) 99 Room Air 98.4 EKG: EKG: [] Radiology/Procedures: Radiology/Procedures: [] Course & Med Decision Making: Course & Med Decision Making Pertinent Labs and Imaging studies reviewed. (See chart for details) Concern for uncomplicated UTI in a well-appearing, afebrile patient with no medical signs of pyelonephritis. Will treat with Macrobid and recommend to discontinue any AZO use, antihistamines [id number] as needed for itching. Will discharge home with strict ED return precautions were given for pyelonephritis which includes flulike symptoms, fever, nausea or vomiting or dehydration. Encouraged urgent outpatient follow-up with PMD. Life-threatening processes were considered but are low suspicion at this time, given history, physical exam and ED workup. Pt was educated on all prescription medications and adverse effects. All patient's questions were answered and pt was stable at time of discharge. Life/limb-threatening differential includes but is not limited to, trauma, infection, nephrolithiasis, kidney disease, malignancy, obstructive uropathy, BPH, AAA/AVF/aortic dissection, or schistosomiasis. I have spoken with the patient and/or caregivers. I explained the patient's condition, diagnoses and treatment plan based on the information available to me at this time. I have answered the patient and/or caregiver's questions and addressed any concerns. The patient and/or caregivers have a good understanding of patient's diagnosis, condition and treatment plan as can be expected at this point. Vital signs have been stable. Patient's condition is stable and appropriate for discharge from the emergency department. Patient will pursue further outpatient evaluation with primary care physician or other designated or consulting physician as outlined in the discharge instructions. The patient and/or caregivers are agreeable to this plan of care and follow-up instructions have been explained in detail. The patient and/or caregivers have received these instructions in written form and have expressed an understanding of the discharge instructions. The patient and/or caregivers are aware that any significant change of condition or worsening of symptoms should prompt immediate return to this or the closest emergency department or call to 911Jacob Encarnacion Disclaimer: Alysha Disclaimer: This electronic medical record was generated, in whole or in part, using a voice recognition dictation system. Departure Departure Impression: Primary Impression: UTI (lower urinary tract infection) Disposition: HOME / SELF CARE / HOMELESS Condition: STABLE Referrals: NO PCP (PCP) Follow-up with your primary care physician to repeat u/a in 10 days OR FOLLOW UP WITH FAMILY MEDICINE: [address] [place] [address] Patient Instructions: Urinary Tract Infection Additional Instructions: EMERGENCY DEPARTMENT GENERAL DISCHARGE INSTRUCTIONS Thank you for coming to [facility] Emergency Department (ED) today and trusting us with you care. We trust that you had a positive experience in our Emergency Department. If you wish to speak to the department management, you may call the Director at [phone]. YOUR FOLLOW UP INSTRUCTIONS ARE FOLLOWS: 1. Do you have a private Doctor? If you do not have a private doctor, please ask for a resource list of physicians or clinics that may be able to assist you with follow up care. ADDITIONAL INSTRUCTIONS AND INFORMATION: 1. Your care today has been supervised by a physician who is specially trained in emergency care. Many problems require more than one evaluation for a complete diagnosis and treatment. We recommend that you schedule your follow up appointment as recommended to ensure complete treatment of you illness or injury. If you are unable to obtain follow up care and continue to have a problem, or if your condition worsens, we recommend that you return to the ED. 2. We are not able to safely determine your condition over the phone nor are we able to give sound medical advice over the phone. For these safety reasons, if you call for medical advice we will ask you to come to the ED for further evaluation. 3. If you have any questions regarding these discharge instructions please call the ED at [phone]. SAFETY INFORMATION: In the interest of safety, wellness, and injury prevention; we encourage you to wear your sealbelt, if you smoke; quite smoking, and we encourage family to use a protective helmet for bicycling and other sporting events that present an increased risk for head injury. IF YOUR SYMPTOMS WORSEN OR NEW SYMPTOMS DEVELOP, OR YOU HAVE CONCERNS ABOUT YOUR CONDITION; OR IF YOUR CONDITION WORSENS WHILE YOU ARE WAITING FOR YOUR FOLLOW UP APPOINTMENT; EITHER CONTACT YOUR PRIMARY CARE DOCTOR, THE PHYSICIAN WHOSE NAME AND NUMBER YOU WERE GIVEN, OR RETURN TO THE ED IMMEDIATELY. Scripts Nitrofurantoin Monohyd/M-Cryst (MACROBID 100 MG CAPSULE) 100 Mg Capsule 1 CAP PO BID for 7 Days, #14 CAP 0 Refills Prov: JONATAN HEMPHILL DO 04/30/21 JONATAN HEMPHILL DO Apr 30, 2021 02:45
== END 2021-04-30 02:55 | disposition home or self-care (01) ==
LOC: ER 22:50
DX: N39.0 Urinary tract infection, site not specified (principal); F17.200 Nicotine dependence, unspecified, uncomplicated; Z98.890 Other specified postprocedural states; Z88.0 Allergy status to penicillin
CPT/HCPCS: 81001; 81025; 87077; 87086; 87186; 99283